=== PATIENT | female | born 1995 | race Caucasian/White ===

== ENCOUNTER 2020-09-16 04:37 | Emergency (ER) | payer MEDICAID, SELFPAY ==
[~2020-09-16] VITALS: Ht 167.6 cm; Wt 96.2 kg
[~2020-09-16 04:37] MED LIST: COL100 PO; NORCO1 TA2 PO
[2020-09-16 04:41] VITALS: Ht 167.6 cm; Wt 96.2 kg
[2020-09-16 05:19] VITALS: BP 126/94
== END 2020-09-16 05:19 | disposition home or self-care (01) ==
LOC: ED 04:37
DX: U07.1 COVID-19 (principal)
CPT/HCPCS: U0003